=== PATIENT | male | born 1950 | race Caucasian/White ===

== ENCOUNTER 2021-11-19 10:49 | Emergency (ER) | payer BC, MEDICARE ==
[~2021-11-19] VITALS: Ht 165.1 cm; Wt 63.5 kg
[2021-11-19] MEDS ORDERED: KETOROLAC 30MG VIAL (30MG/ML) IM ONE (13:30)
[2021-11-19] MEDS ORDERED: DEXAMETHASONE 4 MG TAB PO SCH (13:30)
[2021-11-19 13:34] VITALS: BP 154/87
[2021-11-19] MEDS ORDERED: DEXA6TAB PO (13:40)
== END 2021-11-19 13:49 | disposition home or self-care (01) ==
LOC: EDH 10:49
DX: M76.9 Unspecified enthesopathy, lower limb, excluding foot (principal); M25.551 Pain in right hip; M54.50 Low back pain, unspecified; I25.10 Atherosclerotic heart disease of native coronary artery without angina pectoris; J44.9 Chronic obstructive pulmonary disease, unspecified; E78.00 Pure hypercholesterolemia, unspecified; Z98.890 Other specified postprocedural states; Z79.899 Other long term (current) drug therapy
CPT/HCPCS: 73502; 96372; 99284; J1885; J8540